=== PATIENT | male | born 1960 | race Caucasian/White ===

== ENCOUNTER 2018-04-06 11:01 | Observation (INO) | payer SELFPAY ==
[~2018-04-06] VITALS: Ht 185.4 cm; Wt 90.0 kg
[~2018-04-06 11:01] MED LIST: ACIP20TA19 PO; ASPI81TA82 PO; HYDR50 PO; LEXA10TA PO; LEXA5TAB PO; METO50CR PO; NITR0.4S SL; ZOCO20TA PO
[2018-04-06 11:06] VITALS: BP 134/78; PULSE 73; RESP 19; TEMP 97.5; O2SAT 96
--- NOTE | 2018-04-06 11:19 | PD ---
HPI Chief Complaint: Musculoskeletal Complaint Time Seen by Provider: 11:10 Travel History International Travel<30 days: No Contact w/Intl Traveler<30days: No Traveled to known affect area: No History of Present Illness HPI 57-year-old male with significant cardiac history, currently not taking any medications for several months, presents emergency department for evaluation. Patient was walking in [employer] when he had acute onset left-sided leg pain. He felt this might have something to do with a bypass graft he had 30 years ago. The pain subsided and he developed an ache in his left thigh. He got into his car to drive home. On the way home, he developed diaphoresis, shortness of breath, and felt like he was going to pass out. He states he had to allow his friend to drive at which time they decided to come to the emergency department. Patient denies any significant pain. He states currently he feels moderately short of breath and lightheaded. He has no recent illnesses, fever, or chills. He has no other symptoms to report. PFSH Past Medical History Hx Anticoagulant Therapy: Yes (ASPIRIN ) Anxiety: Yes Cancer: No Cardiovascular Problems: Yes (tachycardia) Diabetes: No Diminished Hearing: No GERD: Yes Glaucoma: No Hepatitis: No Hiatal Hernia: No Hypertension: Yes Kidney Stones: Yes Medical other: Yes (reflux) Respiratory: No Thyroid Disease: No Past Surgical History Abdominal Surgery: No Cardiac Surgery: No Ear Surgery: No Eye Surgery: No Genitourinary Surgery: Yes (CYSTOSCOPY, STENT PLACEMENT LEFT URETER 10/15/09) Gynecologic Surgery: No Neurologic Surgery: No Oral Surgery: No Pacemaker: No Thoracic Surgery: No Other Surgery: Yes Social History Alcohol Use: Yes (EVERY COUPLE MONTHS) Tobacco Use: Yes (3/4 PACK DAILY) Substance Use: No (MARIJUANA OCC) Allergies-Medications (Allergen,Severity, Reaction): Coded Allergies: No Known Allergies (Verified Adverse Reaction, Unknown, 04/06/18) Reported Meds & Prescriptions Reported Meds & Active Scripts Active Review of Systems Except as stated in HPI: all other systems reviewed are Neg Physical Exam Narrative GENERAL: Well-nourished male patient, no acute distress SKIN: Focused skin assessment warm/dry. HEAD: Atraumatic. Normocephalic. EYES: Pupils equal and round. No scleral icterus. No injection or drainage. ENT: No nasal bleeding or discharge. Mucous membranes pink and moist. NECK: Trachea midline. No JVD. CARDIOVASCULAR: Regular rate and rhythm. No murmur appreciated. RESPIRATORY: No accessory muscle use. Clear to auscultation. Breath sounds equal bilaterally. GASTROINTESTINAL: Abdomen soft, non-tender, nondistended. Hepatic and splenic margins not palpable. MUSCULOSKELETAL: No obvious deformities. No clubbing. No cyanosis. No edema. Full flexion-extension of the lower extremity. Distal pulses are palpable. Both distal lower extremities are warm to touch. Cap refill is within normal limits. NEUROLOGICAL: Awake and alert. No obvious cranial nerve deficits. Motor grossly within normal limits. Normal speech. PSYCHIATRIC: Appropriate mood and affect; insight and judgment normal. Data Data Last Documented VS Vital Signs Date Time Temp Pulse Resp B/P (MAP) Pulse Ox O2 Delivery O2 Flow Rate FiO2 04/06/18 11:32 18 96 Room Air 04/06/18 11:06 97.5 73 134/78 (96) Orders Orders Electrocardiogram (04/06/18 11:17) Basic Metabolic Panel (Bmp) (04/06/18 11:17) Ckmb (Isoenzyme) Profile (04/06/18 11:17) Complete Blood Count With Diff (04/06/18 11:17) Magnesium (Mg) (04/06/18 11:17) Prothrombin Time / Inr (Pt) (04/06/18 11:17) Act Partial Throm Time (Ptt) (04/06/18 11:17) Troponin I (04/06/18 11:17) Ecg Monitoring (04/06/18 11:17) Bilateral Bp Monitoring (04/06/18 11:17) Iv Access Insert/Monitor (04/06/18 11:17) Oximetry (04/06/18 11:17) Oxygen Administration (04/06/18 11:17) Aspirin Chew (Aspirin Chew) (04/06/18 11:30) Sodium Chloride 0.9% Flush (Ns Flush) (04/06/18 11:30) Chest, Pa & Lat (04/06/18 11:17) Sodium Chlor 0.9% 1000 Ml Inj (Ns 1000 M (04/06/18 11:30) CKMB (04/06/18 11:10) CKMB% (04/06/18 11:10) Labs Laboratory Tests Test 04/06/18 11:10 White Blood Count 10.6 TH/MM3 Red Blood Count 4.99 MIL/MM3 Hemoglobin 16.4 GM/DL Hematocrit 46.5 % Mean Corpuscular Volume 93.2 FL Mean Corpuscular Hemoglobin 32.9 PG Mean Corpuscular Hemoglobin Concent 35.3 % Red Cell Distribution Width 14.2 % Platelet Count 230 TH/MM3 Mean Platelet Volume 7.9 FL Neutrophils (%) (Auto) 58.7 % Lymphocytes (%) (Auto) 31.6 % Monocytes (%) (Auto) 7.8 % Eosinophils (%) (Auto) 1.6 % Basophils (%) (Auto) 0.3 % Neutrophils # (Auto) 6.2 TH/MM3 Lymphocytes # (Auto) 3.3 TH/MM3 Monocytes # (Auto) 0.8 TH/MM3 Eosinophils # (Auto) 0.2 TH/MM3 Basophils # (Auto) 0.0 TH/MM3 CBC Comment DIFF FINAL Differential Comment Prothrombin Time 9.8 SEC Prothromb Time International Ratio 1.0 RATIO Activated Partial Thromboplast Time 27.1 SEC Blood Urea Nitrogen 11 MG/DL Creatinine 1.01 MG/DL Random Glucose 96 MG/DL Calcium Level 9.5 MG/DL Magnesium Level 2.2 MG/DL Sodium Level 139 MEQ/L Potassium Level 4.0 MEQ/L Chloride Level 107 MEQ/L Carbon Dioxide Level 21.2 MEQ/L Anion Gap 11 MEQ/L Estimat Glomerular Filtration Rate 76 ML/MIN Total Creatine Kinase 210 U/L Creatine Kinase MB 4.3 NG/ML Troponin I LESS THAN 0.02 NG/ML MDM Medical Decision Making Medical Screen Exam Complete: Yes Emergency Medical Condition: Yes Medical Record Reviewed: Yes Differential Diagnosis Atypical chest pain versus syncope versus near syncope versus vasovagal response Narrative Course 57-year-old male presents emergency department for evaluation. Patient appears well. His only complaint at this time is sensational lightheaded and mild shortness of breath. Patient has significant cardiac history and has not been taking this medication. Lab work is reviewed and without any acute concern. The leg pain that preceded any of these symptoms may or may not be related. He could have very well had a vasovagal response however with his history, noncompliance of medications, I discussed the patient my attending physician. We feel it would be in his best interest to be admitted to chest pain center for further cardiac evaluation. Plan is discussed with the patient and he is in agreement with this plan of care. Laboratory Tests Test 04/06/18 11:10 White Blood Count 10.6 TH/MM3 Red Blood Count 4.99 MIL/MM3 Hemoglobin 16.4 GM/DL Hematocrit 46.5 % Mean Corpuscular Volume 93.2 FL Mean Corpuscular Hemoglobin 32.9 PG Mean Corpuscular Hemoglobin Concent 35.3 % Red Cell Distribution Width 14.2 % Platelet Count 230 TH/MM3 Mean Platelet Volume 7.9 FL Neutrophils (%) (Auto) 58.7 % Lymphocytes (%) (Auto) 31.6 % Monocytes (%) (Auto) 7.8 % Eosinophils (%) (Auto) 1.6 % Basophils (%) (Auto) 0.3 % Neutrophils # (Auto) 6.2 TH/MM3 Lymphocytes # (Auto) 3.3 TH/MM3 Monocytes # (Auto) 0.8 TH/MM3 Eosinophils # (Auto) 0.2 TH/MM3 Basophils # (Auto) 0.0 TH/MM3 CBC Comment DIFF FINAL Differential Comment Prothrombin Time 9.8 SEC Prothromb Time International Ratio 1.0 RATIO Activated Partial Thromboplast Time 27.1 SEC Blood Urea Nitrogen 11 MG/DL Creatinine 1.01 MG/DL Random Glucose 96 MG/DL Calcium Level 9.5 MG/DL Magnesium Level 2.2 MG/DL Sodium Level 139 MEQ/L Potassium Level 4.0 MEQ/L Chloride Level 107 MEQ/L Carbon Dioxide Level 21.2 MEQ/L Anion Gap 11 MEQ/L Estimat Glomerular Filtration Rate 76 ML/MIN Total Creatine Kinase 210 U/L Creatine Kinase MB 4.3 NG/ML Troponin I LESS THAN 0.02 NG/ML Diagnosis Primary Impression: Atypical chest pain Additional Impressions: CAD (coronary artery disease) Qualified Codes: I25.10 - Atherosclerotic heart disease of [place] coronary artery without angina pectoris Nonadherence to medication Admitting Information Admitting Physician Requests: Observation Scripts No Active Prescriptions or Reported Meds Condition: Malu Cagle Apr 06, 2018 11:19
[2018-04-06] MEDS ORDERED: SODIUM CHLORIDE 0.9% FLUSH 10 ML FLUSH IVF PRN (11:30)
[2018-04-06] MEDS ORDERED: SODIUM CHLOR 0.9% 1000 ML INJ 1,000 ML IV ONE (11:30)
[2018-04-06] MEDS ORDERED: ASPIRIN 81 MG CHEW TAB PO ONE (11:30)
[2018-04-06 11:32] VITALS: RESP 18; O2SAT 96
[2018-04-06 11:58] LABS: AUTOMATED NEUTROPHIL # 6.2 TH/MM3 (1.8-7.7); BASOPHIL % 0.3 % (0.0-2.0); EOSINOPHIL # 0.2 TH/MM3 (0-0.4); EOSINOPHIL % 1.6 % (0.0-4.0); HEMATOCRIT 46.5 % (39.0-51.0); HEMOGLOBIN 16.4 GM/DL (13.0-17.0); LYMPH % 31.6 % (9.0-44.0); LYMPHOCYTE # 3.3 TH/MM3 (1.0-4.8); MEAN CELL VOLUME 93.2 FL (80.0-100.0); MEAN CORPUSCULAR HEMOGLOBIN 32.9 PG (27.0-34.0); MEAN CORPUSCULAR HGB CONC 35.3 % (32.0-36.0); MEAN PLATELET VOLUME 7.9 FL (7.0-11.0); MONO % 7.8 % (0.0-8.0); MONOCYTE # 0.8 TH/MM3 (0-0.9); NEUT % 58.7 % (16.0-70.0); PLATELET COUNT 230 TH/MM3 (150-450); RED BLOOD COUNT 4.99 MIL/MM3 (4.50-5.90); RED CELL DISTRIBUTION WIDTH 14.2 % (11.6-17.2); WHITE BLOOD COUNT 10.6 TH/MM3 (4.0-11.0)
[2018-04-06 12:01] LABS: PROTHROMBIN TIME - PATIENT 9.8 SEC (9.8-11.6)
[2018-04-06 12:12] LABS: BICARBONATE 21.2 MEQ/L (21.0-32.0); BLOOD UREA NITROGEN 11 MG/DL (7-18); CALCIUM 9.5 MG/DL (8.5-10.1); CHLORIDE 107 MEQ/L (98-107); CREATININE 1.01 MG/DL (0.60-1.30); GLOMERULAR FILTRATION RATE 76 ML/MIN (>89); GLUCOSE,RANDOM 96 MG/DL (74-106); MAGNESIUM 2.2 MG/DL (1.5-2.5); SODIUM (NA) 139 MEQ/L (136-145)
[2018-04-06 12:13] LABS: TROPONIN I LESS THAN 0.02 NG/ML (0.02-0.05)
--- NOTE | 2018-04-06 12:30 | RADRPT ---
EXAM DATE: 04/06/2018 12:12 PM EDT AGE/SEX: 57 years / Male INDICATIONS: Short of breath, dizziness, and weakness today. CLINICAL DATA: This is the patient's initial encounter. Patient reports that signs and symptoms have been present for 1 day and indicates a pain score of 0/10. MEDICAL/SURGICAL HISTORY: Hypertension. Gastroesophageal reflux disease. None. COMPARISON: No prior exams available for comparison. FINDINGS: PA and lateral views of the chest demonstrate the lungs to be symmetrically aerated without evidence of mass, infiltrate or effusion. The cardiomediastinal contours are unremarkable. Osseous structures are intact. CONCLUSION: No acute findings. Electronically signed by: Marcellus Lugo MD 04/06/2018 12:28 PM EDT
--- NOTE | 2018-04-06 12:48 | PD ---
Physical Exam Narrative GENERAL: 57 y/o male in no apparent distress SKIN: Focused skin assessment warm/dry. HEAD: Atraumatic. Normocephalic. EYES: Pupils equal and round. No scleral icterus. No injection or drainage. ENT: No nasal bleeding or discharge. Mucous membranes pink and moist. NECK: Trachea midline. CARDIOVASCULAR: Regular rate and rhythm. RESPIRATORY: No accessory muscle use. MUSCULOSKELETAL: No obvious deformities. No clubbing. No cyanosis. No edema. NEUROLOGICAL: Awake and alert. No obvious cranial nerve deficits. Motor grossly within normal limits. Normal speech. Data Data Last Documented VS Vital Signs Date Time Temp Pulse Resp B/P (MAP) Pulse Ox O2 Delivery O2 Flow Rate FiO2 04/06/18 11:32 18 96 Room Air 04/06/18 11:06 97.5 73 134/78 (96) Orders Orders Electrocardiogram (04/06/18 11:17) Basic Metabolic Panel (Bmp) (04/06/18 11:17) Ckmb (Isoenzyme) Profile (04/06/18 11:17) Complete Blood Count With Diff (04/06/18 11:17) Magnesium (Mg) (04/06/18 11:17) Prothrombin Time / Inr (Pt) (04/06/18 11:17) Act Partial Throm Time (Ptt) (04/06/18 11:17) Troponin I (04/06/18 11:17) Ecg Monitoring (04/06/18 11:17) Bilateral Bp Monitoring (04/06/18 11:17) Iv Access Insert/Monitor (04/06/18 11:17) Oximetry (04/06/18 11:17) Oxygen Administration (04/06/18 11:17) Aspirin Chew (Aspirin Chew) (04/06/18 11:30) Sodium Chloride 0.9% Flush (Ns Flush) (04/06/18 11:30) Chest, Pa & Lat (04/06/18 11:17) Sodium Chlor 0.9% 1000 Ml Inj (Ns 1000 M (04/06/18 11:30) CKMB (04/06/18 11:10) CKMB% (04/06/18 11:10) Admit Order (Ed Use Only) (04/06/18 12:32) Labs Laboratory Tests Test 04/06/18 11:10 White Blood Count 10.6 TH/MM3 Red Blood Count 4.99 MIL/MM3 Hemoglobin 16.4 GM/DL Hematocrit 46.5 % Mean Corpuscular Volume 93.2 FL Mean Corpuscular Hemoglobin 32.9 PG Mean Corpuscular Hemoglobin Concent 35.3 % Red Cell Distribution Width 14.2 % Platelet Count 230 TH/MM3 Mean Platelet Volume 7.9 FL Neutrophils (%) (Auto) 58.7 % Lymphocytes (%) (Auto) 31.6 % Monocytes (%) (Auto) 7.8 % Eosinophils (%) (Auto) 1.6 % Basophils (%) (Auto) 0.3 % Neutrophils # (Auto) 6.2 TH/MM3 Lymphocytes # (Auto) 3.3 TH/MM3 Monocytes # (Auto) 0.8 TH/MM3 Eosinophils # (Auto) 0.2 TH/MM3 Basophils # (Auto) 0.0 TH/MM3 CBC Comment DIFF FINAL Differential Comment Prothrombin Time 9.8 SEC Prothromb Time International Ratio 1.0 RATIO Activated Partial Thromboplast Time 27.1 SEC Blood Urea Nitrogen 11 MG/DL Creatinine 1.01 MG/DL Random Glucose 96 MG/DL Calcium Level 9.5 MG/DL Magnesium Level 2.2 MG/DL Sodium Level 139 MEQ/L Potassium Level 4.0 MEQ/L Chloride Level 107 MEQ/L Carbon Dioxide Level 21.2 MEQ/L Anion Gap 11 MEQ/L Estimat Glomerular Filtration Rate 76 ML/MIN Total Creatine Kinase 210 U/L Creatine Kinase MB 4.3 NG/ML Troponin I LESS THAN 0.02 NG/ML MDM Supervised Visit with MARIN: Yes Interpretation(s) CBC & BMP Diagram 04/06/18 11:10 Calcium Level 9.5, Magnesium Level 2.2 Last 24 hours Impressions Chest X-Ray 04/06/18 1117 Signed Impressions: CONCLUSION: No acute findings. Narrative Course I, Dr. jung, have reviewed the advance practice practitioner's documentation and am in agreement, met with the patient face to face, made the diagnosis, and the medical decision making was done by me. *My assessment and Findings: 57 y/o male with leg pain and episode of near syncope, initial ER workup no acute. Given cardiac history patient agrees to chest pain center observation for further care Diagnosis Primary Impression: Atypical chest pain Additional Impressions: Nonadherence to medication CAD (coronary artery disease) Qualified Codes: I25.10 - Atherosclerotic heart disease of [place] coronary artery without angina pectoris Scripts No Active Prescriptions or Reported Meds Condition: Annalisa Preciado MD Apr 06, 2018 12:47
--- NOTE | 2018-04-06 13:04 | EKG ---
Date Performed: 04/06/2018 Time Performed: 10:05:13 PTAGE: 57 years EKG: Sinus rhythm NORMAL ECG INTERPRETATION BASED ON A DEFAULT AGE OF 40 YEARS PREVIOUS TRACING : 01/27/2016 12.41 DOCTOR: Mario Tovar Interpretating Date/Time 04/06/2018 13:02:43
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
[2018-04-06] MEDS ORDERED: cloNIDine HCL 0.1 MG TAB PO PRN (14:15)
[2018-04-06] MEDS ORDERED: ONDANSETRON ODT 4 MG TAB PO PRN (14:15)
[2018-04-06] MEDS ORDERED: ACETAMINOPHEN/HYDROcodone 325 MG/7.5 MG TAB PO PRN (14:15)
[2018-04-06] MEDS ORDERED: RESP: ALBUTEROL 2.5 MG/IPRATROPIUM 0.5 MG NEB (PRN) INH (14:15)
[2018-04-06] MEDS ORDERED: ACETAMINOPHEN 500 MG CPLT PO PRN (14:15)
[2018-04-06 14:46] VITALS: BP 130/79; PULSE 51; RESP 18; TEMP 97.5; O2SAT 98
[2018-04-06 16:17] LABS: TROPONIN I LESS THAN 0.02 NG/ML (0.02-0.05)
[2018-04-06 19:42] LABS: TROPONIN I LESS THAN 0.02 NG/ML (0.02-0.05)
--- NOTE | 2018-04-07 07:15 | EKG ---
Date Performed: 04/06/2018 Time Performed: 13:25:38 PTAGE: 57 years EKG: SINUS BRADYCARDIA BORDERLINE ECG Since PREVIOUS TRACING , no significant change noted PREVIOUS TRACIN04/06/2018 10.05 DOCTOR: Balbina Owen Interpretating Date/Time 04/07/2018 07:13:33
--- NOTE | 2018-04-07 07:16 | EKG ---
Date Performed: 04/06/2018 Time Performed: 18:39:41 PTAGE: 57 years EKG: SINUS BRADYCARDIA BORDERLINE ECG Since PREVIOUS TRACING , no significant change noted PREVIOUS TRACIN04/06/2018 13.25 DOCTOR: Balbina Owen Interpretating Date/Time 04/07/2018 07:14:35
[2018-04-07] MEDS ORDERED: ASPIRIN 325 MG TAB PO SCH (09:00)
== END 2018-04-06 20:27 | disposition left against medical advice (07) ==
LOC: NEPE 11:01 → NEDA 12:35 → NEPHCDU 14:56
PROVIDERS: ADMIT Internal Medicine Cardiovascular Disease; ATTEND Internal Medicine Cardiovascular Disease
DX: M79.605 Pain in left leg (principal); F17.200 Nicotine dependence, unspecified, uncomplicated; R61 Generalized hyperhidrosis; R06.02 Shortness of breath; R42 Dizziness and giddiness; F41.9 Anxiety disorder, unspecified; K21.9 Gastro-esophageal reflux disease without esophagitis; I10 Essential (primary) hypertension; Z87.442 Personal history of urinary calculi; I47.1 Supraventricular tachycardia; F12.90 Cannabis use, unspecified, uncomplicated
CPT/HCPCS: 71046; 80048; 82550; 82552; 83735; 84484; 85025; 85379; 85610; 85730; 93005; 96360; 96361; 99285; G0378; J7030